=== PATIENT | female | born 1960 | race Hispanic/Latino ===

== ENCOUNTER 2019-11-24 15:17 | Emergency (ER) | payer MEDICAID ==
[~2019-11-24 15:17] MED LIST: ACET1TAB12 PO; CYCL30DR OP; ESOM40CA PO; FERR324T4 PO; FESO8TAB PO; FLUTICASONE NASAL NASAL; MAGN400C PO; OLOP2.5D5 OP; PRAV10TA39 PO; TERB250T51 PO; TIZA4TAB5 PO; TRAZ150T79 PO; VITA1TAB22 PO
[2019-11-24 15:44] LABS: BASOPHILS % (AUTO) 0.1 % (0.0-5.0); HEMATOCRIT 38.5 % (36-48); LYMPHOCYTES % (AUTO) 7.7 % (21.0-51.0); MEAN CORPUSCULAR HEMOGLOBIN 29.4 pg (27.0-33.0); MEAN CORPUSCULAR VOLUME 89.1 fL (79-99); MONOCYTES % (AUTO) 3.4 % (3.0-13.0); NEUTROPHILS % (AUTO) 88.2 % (40.0-77.0); PLATELET COUNT (AUTO) 329 K/uL (130-400); RED BLOOD CELL COUNT(AUTO) 4.32 MIL/uL (4.00-5.50); RED CELL DISTRIBUTION WIDTH 13.9 % (11.0-15.5); WHITE BLOOD COUNT (AUTO) 9.2 K/uL (4.8-10.8)
[2019-11-24 15:54] LABS: CREATININE 1.1 mg/dL (0.5-1.5); POTASSIUM 3.4 mmol/L (3.5-5.1)
[2019-11-24 16:22] LABS: B-TYPE NATRIURETIC PEPTIDE 214 pg/mL (0-100)
== END 2019-11-24 17:24 | disposition home or self-care (01) ==
LOC: EDH 15:17
DX: U07.1 COVID-19 (principal); F41.9 Anxiety disorder, unspecified; F32.9 Major depressive disorder, single episode, unspecified
CPT/HCPCS: 36415; 71045; 80048; 82550; 83880; 84484; 85025; 87426; 93005

== ENCOUNTER → 2021-06-10 | Outpatient (CLI) | payer MEDICAID ==
[~2021-06-10] MED LIST changes: -TERB250T51 PO; +TERB250T89 PO; +TIZA-211 PO; -TIZA4TAB5 PO
== END | disposition home or self-care (01) ==
LOC: OIH 14:33
PROVIDERS: ATTEND Internal Medicine
DX: R06.02 Shortness of breath (principal); R91.8 Other nonspecific abnormal finding of lung field; M47.815 Spondylosis without myelopathy or radiculopathy, thoracolumbar region
CPT/HCPCS: 71046

== ENCOUNTER → 2021-07-21 | Outpatient (CLI) | payer MEDICAID ==
[~2021-07-21] MED LIST changes: +IOHEXOL 350 MG/ML 100ML INFUS..BTL IV ONE
== END | disposition home or self-care (01) ==
LOC: RAH 12:01
PROVIDERS: ATTEND Internal Medicine
DX: I26.99 Other pulmonary embolism without acute cor pulmonale (principal); K44.9 Diaphragmatic hernia without obstruction or gangrene; R06.02 Shortness of breath; R79.89 Other specified abnormal findings of blood chemistry
CPT/HCPCS: 71275; Q9967

== ENCOUNTER → 2023-08-21 | Outpatient (CLI) | payer MEDICAID ==
[~2023-08-21] MED LIST changes: -IOHEXOL 350 MG/ML 100ML INFUS..BTL IV ONE; +VITA-427 PO; -VITA1TAB22 PO
== END | disposition home or self-care (01) ==
LOC: RAH 08:54
PROVIDERS: ATTEND Internal Medicine
DX: M19.012 Primary osteoarthritis, left shoulder (principal); M19.022 Primary osteoarthritis, left elbow; M25.512 Pain in left shoulder; M25.522 Pain in left elbow
CPT/HCPCS: 73030; 73070

== ENCOUNTER → 2025-03-25 | Outpatient (CLI) | payer MEDICAID ==
[~2025-03-25] MED LIST changes: +PRAV10TA37 PO; -PRAV10TA39 PO
--- NOTE | 2025-03-25 23:43 | HMCIMG ---
STUDY: X-RAY OF THE CHEST, 2 VIEWS HISTORY: Preoperative evaluation in a patient with hypertension. TECHNIQUE: PA and lateral views of the chest are submitted for interpretation. COMPARISON: None provided. FINDINGS: Pulmonary duarte: Mild bilateral prominence of pulmonary vascular markings, most likely reflecting age-related vascular changes. No focal consolidation, pleural effusion, pneumothorax, or suspicious pulmonary nodule is identified. Cardiac silhouette: Cardiomegaly is not present; the cardiomediastinal silhouette is normal in size. Mediastinum and ashley: Central airways are patent. Mediastinal and hilar contours are unremarkable without widening or discrete mass. Osseous structures: Visualized ribs, clavicles, scapulae, and thoracic spine show no acute fracture or destructive osseous lesion. Miscellaneous: Nerve stimulator leads are seen over the mid-thoracic region. No subdiaphragmatic free air is identified. IMPRESSION: * No radiographic evidence of acute cardiopulmonary abnormality. * Nerve stimulator leads over the mid-thoracic region. /[place]
== END | disposition home or self-care (01) ==
LOC: RAH 10:03
PROVIDERS: ATTEND Internal Medicine
DX: Z01.818 Encounter for other preprocedural examination (principal); I10 Essential (primary) hypertension
CPT/HCPCS: 71046